=== PATIENT | male | born 1945 | race Caucasian/White ===

== ENCOUNTER 2016-08-13 19:23 | Inpatient (IN) | payer OTHER, MEDICAID ==
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
--- NOTE | 2016-08-13 19:40 | CPEKG ---
Heart Rate: 98 RR Interval: 612 P-R Interval: 216 QRSD Interval: 110 QT Interval: 372 QTC Interval: 476 P [place]: 41 QRS [place]: -13 T Wave [place]: 73 EKG Severity - ABNORMAL ECG - EKG Impression: SINUS RHYTHM EKG Impression: FIRST DEGREE AV BLOCK EKG Impression: NONSPECIFIC INTRAVENTRICULAR CONDUCTION DELAY EKG Impression: PROBABLE LEFT VENTRICULAR HYPERTROPHY EKG Impression: INFERIOR INFARCT, OLD Electronically Signed By: Mahamed Walters 13-Aug-2016 21:18:04
[2016-08-13 19:41] LABS: % IMMATURE GRANULYOCYTES 1.2 % (0.0-1.1); ADD DIFF? NO; ADD MORPH? NO; ADD SCAN? NO; ATYPICAL LYMPHOCYTE FLAG 0 (0-99); FRAGMENT RBC FLAG 0 (0-99); HEMATOCRIT 49.4 % (40.0-51.0); HEMOGLOBIN 16.5 g/dL (13.7-17.5); LEFT SHIFT FLG 10 (0-99); LIPEMIA HEMOLYSIS FLAG 80 (0-99); MEAN CELL HEMOGLOBIN 26.7 pg (27.9-34.1); MEAN CELL HEMOGLOBIN CONCENTR. 33.4 g/dL (32.4-36.7); MEAN CELL VOLUME 79.9 fL (81.5-99.8); MEAN PLATELET VOLUME 9.4 fL (8.7-11.7); PLATELET CLUMPS FLAG 10 (0-99); PLATELET COUNT 265 10^3/uL (150-400); RED BLOOD CELL COUNT 6.18 10^6/uL (4.40-6.38); RED CELL DISTRIBUTION WIDTH 13.4 % (11.5-15.2)
[2016-08-13] MEDS ORDERED: ALTEPLASE 100 MG/100 ML VIAL IV ONE ×2 (19:51→20:17)
[2016-08-13 19:56] LABS: ALANINE AMINOTRANSFERASE 98 IU/L (21-72); ALBUMIN 4.5 g/dL (3.5-5.0); ALKALINE PHOSPHATASE 79 IU/L (38-126); ANION GAP 15 mEq/L (8-16); ASPARTATE AMINOTRANSFERASE 74 IU/L (17-59); BILIRUBIN,TOTAL 0.7 mg/dL (0.1-1.4); BILIRUBIN-CONJUGATED 0.4 mg/dL (0.0-0.5); BILIRUBIN-UNCONJUGATED 0.3 mg/dL (0.0-1.1); CALCIUM 10.1 mg/dL (8.5-10.4); CARBON DIOXIDE 20 mEq/l (22-31); CHLORIDE 100 mEq/L (97-110); GLOMERULAR FILTRATION RATE > 60; GLUCOSE 186 mg/dL (70-100); MAGNESIUM 1.8 mg/dL (1.6-2.3); POTASSIUM 4.9 mEq/L (3.5-5.2); SODIUM 135 mEq/L (134-144); TOTAL PROTEIN 8.3 g/dL (6.3-8.2)
[2016-08-13 20:08] LABS: CREATINE KINASE-MB FRACTION 0.49 ng/mL (0-3.19); TROPONIN I < 0.012 ng/mL (0-0.034)
[2016-08-13] MEDS ORDERED: LABETALOL HCL 5 MG/ML 20 ML MDV ONE (20:11)
[2016-08-13] MEDS ORDERED: NS 50 ML IV ONE (20:17)
[2016-08-13] MEDS ORDERED: ALTEPLASE 1 MG/ML SYR IV ONE (20:17)
[2016-08-13] MEDS ORDERED: LABETALOL HCL 5 MG/ML 20 ML MDV IVP ONE (20:21)
[2016-08-13 20:30] LABS: INR 1.07 (0.83-1.16); PROTIME(PATIENT) 13.8 SEC (12.0-15.0)
[2016-08-13 20:31] LABS: APTT 26.9 SEC (23.0-38.0)
[2016-08-13] MEDS ORDERED: NS 1,000 ML IV ONE (20:35)
--- NOTE | 2016-08-13 20:37 | CT ---
CT Brain Without Contrast 1934 hours History: Stroke alert. Acute neurological changes.. Technique: Axial computed tomographic images of the brain without contrast. Images were reconstruct ed down to 1.25 mm slice thickness. Dose reduction techniques were utilized. Comparison prior CT study of July 29, 2016. Findings: Ventricles, cisterns, and sulci are widened consistent with stable mild to moderate atroph y. No hydrocephalus, masses, midline shift/herniation, or subdural hematomas. No intraparenchymal hem orrhage or mass effect. Stable mild hypodensities are seen in the white matter of bilateral cerebral hemispheres. There is no acute peripheral cerebral infarct seen. Arteriosclerotic calcifications ar e noted associated with distal ICA in the parasellar location bilaterally. Bone windows demonstrate no displaced fractures. Paranasal sinuses and mastoid air cells are clear. erosions are seen associated with the left premola r as well as the loop left first and second molars with erosion around the roots similar to prior fay dy. There is also reactive mucosal thickening inferior left maxillary sinus. The remainder of the par anasal sinuses are clear. There is also erosion around the roots of the right and left second molar i s at the mandible level as well as the premolars bilaterally. Impression: 1. Stable mild to moderate atrophy. 2. No hemorrhage, mass effect, or definite acute peripheral infarct. 3. Stable mild microvascular ischemic disease. 4. Moderate dental disease with associated erosions. These findings were discussed by telephone with Dr. Solomon Macdonald at 1940 hrs.
--- NOTE | 2016-08-13 21:40 | CT ---
CT Angiogram of the Head and Neck 2040 hours History: Stroke alert. Evaluate for stenosis or thrombus the head and neck. Technique: Spiral imaging was obtained from the aortic arch through the skull during the administrati on of 85 mL Isovue-370 IV contrast. The images were reviewed in multiple planes. Volume rendering was performed by me, as well. Dose reduction techniques were utilized. Findings: CT Angiogram Neck: The aortic arch has a normal contour. There is some scattered calcified plaques at the aortic arch level. The great vessels off the aortic arch are normal in appearance. There is a sm all amount of noncalcified plaque in the mid left and right CCA without significant encroachment upon the lumen. There is mild partially calcified plaque within the carotid bulb to proximal ICA bilater ally with mild encroachment upon the lumen but no significant stenosis. Otherwise, the ECA and ICA ar e normal without plaque formation or stenosis. There is a tiny calcified plaque involving the distal left ICA below the skull base without significant stenosis. The vertebral arterial system within the neck is normal in appearance without stenosis, as well. The left vertebral artery is dominant. The or igin of the vertebral artery is also normal bilaterally. There is no evidence of aneurysm or dissect ion. Images through the neck demonstrate no significant lymphadenopathy. A few small subcentimeter lymph n odes are seen. The musculature is symmetric. The submandibular glands and parotid glands are normal i n appearance bilaterally. The patient has had previous anterior cervical fusion from C5 through C7. M oderate degenerative disk disease is noted at C4-C5. CT Angiogram [place]: The distal ICA at the base of the brain has a normal appearance bilate rally without evidence of significant stenosis. There is calcified plaque involving the carotid sipho n bilaterally without significant stenosis. There is normal branching into the anterior and middle ce rebral arteries. The anterior communicating artery is normal in appearance. There is relative decreas e in opacification of anterior temporal branch off the middle cerebral artery on the left when compar ed to the right side. No additional cough of flow or evidence of aneurysm is seen. There is dominant left vertebral artery with relatively small caliber of the right vertebral artery w ith relative areas of narrowing associate with the distal right vertebral artery just before the conf luence into the basilar artery. There are some scattered calcified plaques involving the vertebral ar lee about the level of the foramen magnum bilaterally without significant stenosis. There is normal branching into the posterior inferior cerebellar artery, as well as the superior cerebellar artery an d posterior cerebral artery branches. Imaging through the brain demonstrates no evidence of intracranial hemorrhage, subdural collection, v ascular malformation, or evidence of cerebral infarction. Impression: 1. Scattered calcified plaques associated with the carotid bulb and proximal ICA bilaterally without significant stenosis. Noncalcified plaque is also seen associated with this ECA bilaterally an distal left ICA below the skull base without significant stenosis. 2. Arteriosclerotic plaque at the carotid siphon bilaterally without significant stenosis. 3. Poor filling of the left anterior temporal artery when compared to the right near the proximal M2 segment. This could be related to noncalcified plaque , spasm, or recannulizing thrombus. 4. Mild narrowing associate with the distal right vertebral artery just below the confluence into the basilar artery. This could be congenital versus related to noncalcified plaques. These findings were discussed by telephone with Dr. Solomon Macdonald at 2036 hrs. Note: All calculations were performed using NASCET criteria.
--- NOTE | 2016-08-13 22:47 | DX ---
AP chest x-ray 1943 hours. History: Stroke alert. Acute neurological changes. Findings: Comparison to January 22, 2016. Heart size remains mild to moderately enlarged. Pulmonary vasculature is prominent centrally more pro minent since the prior study. There is once again poor inspiration with mild compressive changes at t he lung bases. Is mild increase in interstitial markings diffusely bilaterally. There is no consolida tion, effusion, or pneumothorax. Osseous structures are unchanged. Impression: 1. Mild to moderate cardiomegaly with mild increase in pulmonary vasculature and prominent interstiti al markings. Rule out mild fluid overload.
[2016-08-13] MEDS ORDERED: LABETALOL HCL 5 MG/ML 20 ML MDV IVP PRN (22:50)
[2016-08-13 23:05] LABS: COLOR YELLOW; LEUKOCYTE ESTERASE,URINE NEGATIVE (NEGATIVE); NITRITE,URINE NEGATIVE (NEGATIVE)
[2016-08-13] MEDS: HYDROCODONE/APAP 5/325 TAB PO PRN (23:59)
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
[2016-08-14 06:14] LABS: % IMMATURE GRANULYOCYTES 1.1 % (0.0-1.1); ABSOLUTE IMMATURE GRANULOCYTES 0.09 10^3/uL (0.00-0.10); ADD DIFF? NO; ADD MORPH? NO; ADD SCAN? NO; ATYPICAL LYMPHOCYTE FLAG 0 (0-99); FRAGMENT RBC FLAG 0 (0-99); HEMATOCRIT 43.4 % (40.0-51.0); HEMOGLOBIN 14.5 g/dL (13.7-17.5); LEFT SHIFT FLG 10 (0-99); LIPEMIA HEMOLYSIS FLAG 80 (0-99); MEAN CELL HEMOGLOBIN 26.5 pg (27.9-34.1); MEAN CELL HEMOGLOBIN CONCENTR. 33.4 g/dL (32.4-36.7); MEAN CELL VOLUME 79.2 fL (81.5-99.8); MEAN PLATELET VOLUME 9.3 fL (8.7-11.7); PLATELET CLUMPS FLAG 10 (0-99); PLATELET COUNT 249 10^3/uL (150-400); RED BLOOD CELL COUNT 5.48 10^6/uL (4.40-6.38); RED CELL DISTRIBUTION WIDTH 13.4 % (11.5-15.2)
[2016-08-14 06:24] LABS: ALANINE AMINOTRANSFERASE 66 IU/L (21-72); ALBUMIN 2.7 g/dL (3.5-5.0); ALKALINE PHOSPHATASE 41 IU/L (38-126); ANION GAP 8 mEq/L (8-16); ASPARTATE AMINOTRANSFERASE 33 IU/L (17-59); BILIRUBIN,TOTAL 0.4 mg/dL (0.1-1.4); CALCIUM 6.8 mg/dL (8.5-10.4); CARBON DIOXIDE 21 mEq/l (22-31); CHLORIDE 111 mEq/L (97-110); CHOLESTEROL 152 mg/dL (140-220); CHOLESTEROL/HDL RATIO 6.91 RATIO (1.00-4.97); CREATININE 0.8 mg/dL (0.7-1.3); GLOMERULAR FILTRATION RATE > 60; GLUCOSE 172 mg/dL (70-100); HIGH DENSITY LIPOPROTEIN 22 mg/dL (40-65); LDL/HDL RATIO 3.59 RATIO (1.00-3.64); LOW DENSITY LIPOPROTEIN 79 mg/dL (80-100); MAGNESIUM 1.4 mg/dL (1.6-2.3); NON-HIGH DENSITY LIPOPROTEIN 130 mg/dL (90-129); POTASSIUM 3.3 mEq/L (3.5-5.2); SODIUM 140 mEq/L (134-144); TOTAL PROTEIN 5.5 g/dL (6.3-8.2); TRIGLYCERIDE 257 mg/dL (40-150); VERY LOW DENSITY LIPOPROTEINS 51 mg/dL (8-25)
[2016-08-14 06:32] LABS: TROPONIN I < 0.012 ng/mL (0-0.034)
[2016-08-14 06:40] LABS: APTT 27.5 SEC (23.0-38.0); INR 1.17 (0.83-1.16); PROTIME(PATIENT) 14.9 SEC (12.0-15.0)
[2016-08-14] MEDS ORDERED: PROTOCOL MAGNESIUM 1 DOSE IV PRN (07:17)
[2016-08-14] MEDS ORDERED: PROTOCOL POTASSIUM 1 DOSE MISC PRN (07:17)
[2016-08-14] MEDS ORDERED: D50W 25 GM/50 ML SYR IVP PRN (07:17)
[2016-08-14] MEDS: INSULIN LISPRO 100 UNIT/ML SC SCH ×3 (09:00→19:07)
[2016-08-14] MEDS ORDERED: POTASSIUM CL 10 MEQ TAB PO ONE (09:35)
[2016-08-14] MEDS ORDERED: MAGNESIUM SULF 2 GM/WATER 50 ML IV ONE (09:35)
--- NOTE | 2016-08-14 10:05 | ECHO ---
[id number] + + [address] : : [place] [address] : : [phone] + + Adult Echocardiographic Report + ----+ :Name: ISABEL NEWSOME Ramonita Date: 08/14/2016 08:00 AM : : Hospital Admission Number: [id number] Location: 251: :: 1945 Gender: Male Height: 63 in : :Age: 71 yrs Race: WH Weight: 220 lb : :Reason For Study: Ischemic stroke : : BSA: 2.0 meters2 : + ----+ MMode/2D Measurements & Calculations IVSd: 1.1 cm LVIDd: 5.7 cm FS: 52.3 % Ao root diam: 4.5 cm LVPWd: 1.4 cm LVIDs: 2.7 cm EDV(Teich): 161.9 ml LA dimension: 4.6 cm ESV(Teich): 27.8 ml EF(Teich): 82.8 % Normal Measurement Values: + + :LVIDd (3.5-5.7cm) IVSd (0.6-1.1cm) LVPWd (0.6-1.1cm) Aortic Root (2.0-3.7cm)Left Atrium (1.5-4.0cm): :LV Vol(d) (76-115ml) LV Vol(s) (29-48ml) Ejec Fraction (50-65%)PV Alexis (0.6- 1.2m/s) TV Alexis (0.4-1.0m/s) : :MV E Alexis (0.8-1.0m/s)MV A Alexis (0.3-1.0m/s)LVOT Alexis (0.7-1.2m/s) Asc Ao Alexis ( 0.9-1.8m/s) : + + Doppler Measurements & Calculations MV E max alexis: 67.6 cm/sec Ao V2 max: 145.2 cm/sec MV A max alexis: 109.6 cm/sec Ao max P.4 mmHg MV E/A: 0.62 Left Ventricle The left ventricle is normal in size. There is normal left ventricular wall thickness. Left ventricular systolic function is normal. Ejection Fraction = 60-65%. There is Doppler evidence for diastolic dysfunction. No regional wall motion abnormalities noted. Right Ventricle The right ventricle is normal in size and function. Atria The left atrial size is normal. Right atrial size is normal. Injection of contrast documented no interatrial shunt. Mitral Valve The mitral valve is normal in structure and function. There is no evidence of mitral valve prolapse. There is no mitral valve stenosis. Tricuspid Valve Normal tricuspid valve. Aortic Valve The aortic valve is trileaflet. The aortic valve opens well. There is mild aortic valve calcification. There is no aortic stenosis. Trace aortic regurgitation. Pulmonic Valve The pulmonic valve is normal in structure and function. Trace pulmonic valvular regurgitation. Great Vessels The aortic root is normal size. Pericardium/Pleural There is no pericardial effusion. There is a fat pad seen. Conclusion A complete two-dimensional transthoracic echocardiogram was performed (2D, M-mode, Doppler and color flow Doppler). The study was technically difficult. Left ventricular systolic function is normal. Injection of contrast documented no interatrial shunt. Ejection Fraction = 60-65%. There is Doppler evidence for diastolic dysfunction. There is mild aortic valve calcification. Trace aortic regurgitation. Trace pulmonic valvular regurgitation. There is a fat pad seen. Final Reading Physician: Lam Starkey signed on 08/14/2016 10:03 AM Ordering Physician: Alisia Soto Performed By: Madalyn Montemayor, [facility]
[2016-08-14] MEDS ORDERED: POTASSIUM CL 20 MEQ TAB PO ONE (10:34)
[2016-08-14] MEDS ORDERED: tiZANidine HCL 2 MG TAB PO PRN (10:35)
[2016-08-14] MEDS ORDERED: HYDROCODONE/APAP 10/325 TAB PO PRN (10:35)
[2016-08-14] MEDS ORDERED: TEMAZEPAM 15 MG CAP PO PRN ×2 (10:35→11:35)
[2016-08-14] MEDS ORDERED: MAGNESIUM HYDROXIDE 30 ML UDCUP PO PRN (10:35)
[2016-08-14] MEDS ORDERED: ZOLPIDEM TARTRATE 5 MG TAB PO PRN (10:35)
[2016-08-14] MEDS: LISINOPRIL 40 MG TAB PO SCH (11:10)
--- NOTE | 2016-08-14 12:47 | GCON ---
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 HISTORY OF PRESENT ILLNESS: Mr. Simms is an extremely pleasant 71-year-old white male with extensiv e past medical history, including chronic pain, depression, hypertension and diabetes. He presents f rom the retirement with aphasia. He was brought to the emergency room per stroke protocol. He was given tPA, and shortly thereafter, improved dramatically and his neurologic status improved to appro ximately baseline. In discussion with the patient, he states overall he is feeling quite well. He i s complaining of slight nausea, but there is no headache, blurred vision, or double vision. No chest pain, pleuritic-type chest pain or angina equivalent. No fever or night sweats. Again, overall, he is feeling fairly close to his normal self. PAST MEDICAL HISTORY: Again significant for hypertension, depression, diabetes, chronic pain. ALLERGIES: Gabapentin. SOCIAL HISTORY: No history of tobacco use. No history of alcohol use. He lives in semi-independent living. PAST SURGICAL HISTORY: He has had a C3-C6 fusion, and appendectomy. CURRENT MEDICATIONS: Amlodipine, aspirin, lisinopril, Lyrica, metformin, milk of magnesia, MiraLAX, [place], nortriptyline, paroxetine, temazepam, Tricor, vitamin D2, clonidine, Januvia, and BuSpar. PHYSICAL EXAM: VITAL SIGNS: Blood pressure is 151/69, pulse is 82, respirations 20, temperature, he is afebrile. Oxygen saturation 94% on room air. GENERAL: He is a well-developed 71-year-old white male who is resting comfortably in no acute distress. HEENT: Eyes are CHU, EOMI. Throat shows no erythema or tonsillar hypertrophy. NECK: Supple. There is no cervical adenopathy. HEART: Regula r rate and rhythm with a 2/6 systolic murmur at left sternal border without radiation. LUNGS: Dimin ished breath sounds, but no wheeze. ABDOMEN: Soft, nontender. Bowel sounds are present in all 4 qu adrants. EXTREMITIES: No clubbing, cyanosis, or edema. LABORATORY: 1. White count 7.9, hemoglobin 14, hematocrit 43, platelet count 249. INR is 1.17. Sodium 140, pot assium 3.3, chloride 111, CO2 of 21, BUN 18, creatinine 0.8, glucose is 172. TSH is 0.621. 2. Urinalysis is negative. 3. Echocardiogram shows an ejection fraction of 60% to 65%, otherwise, mostly normal. 4. CT scan of the head: [id number] atrophy. No hemorrhage, mass effect, or acute infarcts. IMPRESSION: 1. Acute stroke. 2. Status post tPA. 3. Diabetes. Blood sugar under control. 4. Hypertension. 5. Depression. RECOMMENDATIONS: 1. TPA protocol. 2. DVT and PE prophylaxis. 3. Stress ulcer prophylaxis. 4. PT and OT. 5. Speech to see. 6. Early ambulation. /[id number]/MODL
--- NOTE | 2016-08-14 12:50 | HOSPPROG ---
Hospitalist Progress Note Assessment/Plan: Assessment: 71 yo M p/w suspected acute ischemic CVA Plan: # Suspected acute ischemic CVA. Acute, new problem, further w/u indicated. Evidenced by aphasia, paralysis -complete resolution of symptoms status post tPA -echocardiogram without any shunt or significant abnormalities -get brain MRI to determine whether there are any areas of subclinical infarct -discussed with Dr. Wood Perry, recommends continue ICU level monitoring for neuro checks -ensure blood pressure is less than 180, IV labetalol p.r.n. -LDL 80, continue fibrate treatment and will discuss statin -will discuss with Neuro after their consultation, will consider transesophageal echocardiogram given cryptogenic nature -CT angio of the head and neck demonstrates diffuse plaque without any significant stenosis -aspirin when deemed appropriate by neuro -continue to monitor on telemetry for AFib # Chronic HTN. We will initiate patient's home dosage of lisinopril today, hold amlodipine and initiate tomorrow so as not to lower his blood pressure too quickly # DM2. Chronic -dose patient's Januvia, hold metformin given contrast load -insulin sliding scale but hold subcu insulin until deemed appropriate from a tPA standpoint # Chronic pain w/ continuous opiate dependency. Unclear whether patient's pain medications played any role in his presentation -simplify p.r.n. pain regiment with q.4 hours dosing as opposed to variable dosing on his home reconciliation -continue home bowel regimen, high risk of debilitating constipation Diet. Diabetic Prophylaxis. Moderate risk patient, SCDs Code. Full Disposition. Anticipated discharge is 08/15/2016, pending stabilization of the above, patient requires at least 24 hours of post tPA monitoring in the ICU and he will be transitioned to a [facility] surge room tomorrow. Subjective: Reports that he does not have clear memory of yesterday, able to speak and move all extremities today Objective: Vital Signs Temp Pulse Resp BP Pulse Ox 36.4 C 66 20 150/70 H 93 08/14/16 12:00 08/14/16 12:30 08/14/16 12:30 08/14/16 12:30 08/14/16 12:30 Laboratory Results 08/14/16 06:05 08/14/16 05:39 08/13/16 08/14/16 08/15/16 05:59 05:59 05:59 Intake Total 2350 Output Total 750 550 Balance 1600 -550 PT 14.9 SEC (12.0-15.0) 08/14/16 06:05 INR 1.17 (0.83-1.16) H 08/14/16 06:05 - Pending Discharge Pending Discharge Within 24 Hours: Yes Pending Discharge Date: 08/15/16 Pending Discharge Time: 11:00 - Physical Exam Constitutional: no apparent distress, obese, No not in pain, No uncomfortable Cardiovascular: regular rate and rhythym, no murmur, rub, or gallop, No systolic murmur, No irregularly irregular, No tachycardia, No edema Respiratory: no respiratory distress, no rales or rhonchi, clear to auscultation Gastrointestinal: normoactive bowel sounds, soft, non-tender abdomen, no palpable masses, distension (Moderately obese) Neurologic: AAOx3, sensation intact bilaterally, CN II-XII Intact, other (No aphasia), No weakness (Motor strength 5/5 bilateral upper and lower extremities) , No facial droop Psychiatric: interacting appropriately, not anxious, not encephalopathic, thought process linear ICD10 Worksheet Patient Problems: Problems Problem Status Diagnosed Acute CVA (cerebrovascular accident) Acute Aphasia Acute Hypoxia Acute Right sided abdominal pain Acute Chronic pain Acute Continuous opioid dependence Acute Knee pain, acute Acute Status post cervical arthrodesis Chronic
[2016-08-14] MEDS: HYDROCODONE/APAP 5/325 TAB PO PRN ×2 (13:21→21:05)
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
[2016-08-14] MEDS ORDERED: ONDANSETRON 4 MG/2 ML VIAL ONE (20:02)
[2016-08-14] MEDS ORDERED: ONDANSETRON 4 MG/2 ML VIAL IVP PRN (20:03)
[2016-08-14] MEDS ORDERED: NORTRIPTYLINE HCL 25 MG CAP PO SCH (21:00)
[2016-08-14] MEDS: PREGABALIN 75 MG CAP PO SCH (21:04)
[2016-08-14] MEDS: busPIRone 15 MG TAB PO SCH (21:06)
[2016-08-14] MEDS: POLYETHYLENE GLYCOL 3350 17 GM PKT PO SCH (21:06)
--- NOTE | 2016-08-14 21:28 | MR ---
MRI of the Brain (Without Contrast) August 14, 2016 Indication: Stroke alert. Status post TPA for presumed ischemic infarction. Technique: Sagittal and axial T1, axial fast inversion recovery, fast T2-weighted, and diffusion-bj ghted axial images were obtained without contrast. Comparison: MRI of the brain dated May 06, [address] of the head without contrast performed [facility] 2015. Findings: Diffusion-weighted imaging is normal with no evidence of acute ischemia. Mild scattered glass bcortical and periventricular hyperintense white matter disease in the frontal and parietal lobes is similar to April 2015. No intracranial hemorrhage, swelling, or shift has developed. Atrophy and mild enlargement of the midline ventricular system is similar to April 2015. Periventricular hemo siderin deposition in the left parietal lobe, resulting in susceptibility artifact is unchanged. No n ew hemosiderin deposition. The sagittal sinus and carotid and basivertebral arteries have normal black flow-void on T2-weighted imaging. The pituitary gland is normal size. The cervicooccipital junction is normal. Minimal mucosal thickening is present in the left maxillary sinus. The paranasal sinuses are otherwise clear. Impression: 1. No evidence of acute ischemia or intracranial hemorrhage. 2. Mild nonspecific white matter disease in the frontal and parietal lobes and atrophy are unchanged since April 2015.
--- NOTE | 2016-08-15 05:15 | CPEKG ---
Heart Rate: 47 RR Interval: 1277 P-R Interval: 208 QRSD Interval: 114 QT Interval: 496 QTC Interval: 439 P Ballard: 38 QRS Ballard: -28 T Wave Ballard: 123 EKG Severity - ABNORMAL ECG - EKG Impression: SINUS BRADYCARDIA EKG Impression: LVH WITH IVCD AND SECONDARY REPOL ABNRM Electronically Signed By: Fabio Interiano 15-Aug-2016 09:12:46
[2016-08-15 05:20] LABS: ANION GAP 9 mEq/L (8-16); CARBON DIOXIDE 23 mEq/l (22-31); CHLORIDE 104 mEq/L (97-110); GLOMERULAR FILTRATION RATE > 60; GLUCOSE 227 mg/dL (70-100); SODIUM 136 mEq/L (134-144)
[2016-08-15 05:37] LABS: MAGNESIUM 2.2 mg/dL (1.6-2.3)
[2016-08-15] MEDS ORDERED: PARoxetine HCL 20 MG TAB PO SCH (09:00)
[2016-08-15] MEDS ORDERED: FENOFIBRATE 145 MG TAB PO SCH (09:00)
[2016-08-15] MEDS: PREGABALIN 75 MG CAP PO SCH (09:44)
[2016-08-15] MEDS: HYDROCODONE/APAP 5/325 TAB PO PRN (09:45)
[2016-08-15] MEDS: busPIRone 15 MG TAB PO SCH (09:45)
[2016-08-15] MEDS: INSULIN LISPRO 100 UNIT/ML SC SCH ×2 (09:48→13:33)
[2016-08-15] MEDS: POLYETHYLENE GLYCOL 3350 17 GM PKT PO SCH (09:49)
[2016-08-15] MEDS: LISINOPRIL 40 MG TAB PO SCH (09:54)
[2016-08-15 10:03] VITALS: TEMP 99.3
[2016-08-15 11:42] VITALS: O2SAT 90
--- NOTE | 2016-08-15 12:05 | PDCARCONS ---
Cardiology Consult Reason for Consult: Abnormal EKG Chief Complaint: atypical event Requesting Physician: elder barrow History of Present Illness: Woodrow is a 71-year-old diabetic, hypertensive, hyperlipidemic male suffering from significant depression and chronic pain living at [facility]. He was his usual state of health when he was found in bed unresponsive. The next thing he knew he awoke in a scanner. Prior to the event he did not note any chest pain, palpitations. He has no prior history of events. He has no history of syncope or presyncope. He has no family history of sudden or coronary artery disease prematurely. He himself has no history of coronary artery disease, heart failure, valvular heart disease, arrhythmia. Evaluation in the field suggested aphasia with his eyes wide awake. He was unable to move any extremity. He was brought to the emergency department he was treated with tPA after a negative CT scan was performed. He subsequently regained the ability to speak and move. This morning he is feeling well without any complaints. He is limited in his physical activity but with normal activities of daily living he has no angina. Cardiac review of systems is negative for chest pain, shortness of breath, PND , orthopnea, palpitations, syncope, near syncope, edema. History Information - Allergies/Home Medication List Allergies/Adverse Reactions: gabapentin Allergy (Mild, Verified 08/13/16 19:39) Rash Home Medications: amLODIPine BESYLATE [Norvasc 10 mg (*)] 10 mg PO DAILY 05/06/15 [Last Taken 09/28] Aspirin [Aspirin 81mg (*)] 81 mg PO DAILY 06/14/16 [Last Taken 08/13/16] Ergocalciferol [Vitamin D2 (*)] 50,000 unit PO Q30D 06/14/16 [Last Taken ] Fenofibrate [Tricor 145 mg (*)] 145 mg PO DAILY 06/14/16 [Last Taken 08/13/16] HYDROcodone/APAP 10/325 [Winner 10/325 (*)] 1 tab PO Q6 PRN 06/14/16 [Last Taken 08/13/16] Lisinopril [Zestril 40 mg (*)] 40 mg PO DAILY 06/14/16 [Last Taken 08/13/16] Magnesium Hydroxide [Milk of Magnesia] 30 ml PO DAILY PRN 06/14/16 [Last Taken Unknown] Nortriptyline HCl [Pamelor 25 mg (*)] 25 mg PO HS 06/14/16 [Last Taken 08/13/16] PARoxetine HCL [Paxil 20mg (*)] 20 mg PO DAILY 06/14/16 [Last Taken 08/13/16] Polyethylene Glycol 3350 [Miralax 17 gm (*)] 17 gm PO BID 06/14/16 [Last Taken 08/13/16 21:00] Pregabalin [Lyrica 75mg (*)] 225 mg PO BID 06/14/16 [Last Taken 08/13/16 21:00] metFORMIN HCL [Glucophage 500 mg (*)] 1,000 mg PO BIDMEAL 06/14/16 [Last Taken 08/13/16 18:00] tiZANidine HCL [Zanaflex 2MG (*)] 2 mg PO TID PRN 06/14/16 [Last Taken Unknown] busPIRone [Buspar (*)] 15 mg PO BID 07/07/16 [Last Taken 08/13/16 21:00] clonIDINE [Catapres-Tts (*)] 0.2 mg TD MO 07/07/16 [Last Taken 08/13/16] HYDROcodone/APAP 10/325 [Winner 10/325 (*)] 1 tab PO Q2-3PRN PRN 08/14/16 [Last Taken 08/13/16] Temazepam [Restoril 15 MG (*)] 30 mg PO HSPRN PRN 08/14/16 [Last Taken Unknown] Zolpidem Tartrate [Ambien 5MG (*)] 10 mg PO HS PRN 08/14/16 [Last Taken 08/13/16 ] sitaGLIPtin PHOSPHATE [Januvia 25 MG (*)] 50 mg PO DAILY 08/14/16 [Last Taken ] I have personally reviewed and updated: family history, medical history, social history - Past Medical History degenerative disc disease, diabetes type 2, hypertension, hyperlipidemia - Surgical History Reports: no pertinent surgical hx - Family History Negative for: father with history of CAD younger than 55 - Social History Smoking Status: Never smoked Alcohol Use: None Drug Use: None, Marijuana ([employer]. .) Cardiac History - Cardiac History Cardiac Risk Factors: hypertension (>140/90), lipidemia, diabetes mellitus, age > 65, male Physical Exam Temp Pulse Resp BP Pulse Ox 37.4 C 61 16 161/78 H 90 L 08/15/16 08:00 08/15/16 11:00 08/15/16 11:00 08/15/16 11:00 08/15/16 11:00 O2 (L/minute) 3 FIO2 (%) 3 Lab and Imaging 08/14/16 06:05 08/15/16 04:35 WBC 7.93 10^3/uL (3.80-9.50) 08/14/16 06:05 RBC 5.48 10^6/uL (4.40-6.38) 08/14/16 06:05 Hgb 14.5 g/dL (13.7-17.5) 08/14/16 06:05 Hct 43.4 % (40.0-51.0) 08/14/16 06:05 MCV 79.2 fL (81.5-99.8) L 08/14/16 06:05 MCH 26.5 pg (27.9-34.1) L 08/14/16 06:05 MCHC 33.4 g/dL (32.4-36.7) 08/14/16 06:05 RDW 13.4 % (11.5-15.2) 08/14/16 06:05 Plt Count 249 10^3/uL (150-400) 08/14/16 06:05 MPV 9.3 fL (8.7-11.7) 08/14/16 06:05 Neut % (Auto) 57.3 % (39.3-74.2) 08/14/16 06:05 Lymph % (Auto) 26.5 % (15.0-45.0) 08/14/16 06:05 [place] % (Auto) 8.2 % (4.5-13.0) 08/14/16 06:05 Eos % (Auto) 6.1 % (0.6-7.6) 08/14/16 06:05 Baso % (Auto) 0.8 % (0.3-1.7) 08/14/16 06:05 Nucleat RBC Rel Count 0.0 % (0.0-0.2) 08/14/16 06:05 Absolute Neuts (auto) 4.55 10^3/uL (1.70-6.50) 08/14/16 06:05 Absolute Lymphs (auto) 2.10 10^3/uL (1.00-3.00) 08/14/16 06:05 Absolute Monos (auto) 0.65 10^3/uL (0.30-0.80) 08/14/16 06:05 Absolute Eos (auto) 0.48 10^3/uL (0.03-0.40) H 08/14/16 06:05 Absolute Basos (auto) 0.06 10^3/uL (0.02-0.10) 08/14/16 06:05 Absolute Nucleated RBC 0.00 10^3/uL (0-0.01) 08/14/16 06:05 Immature Gran % 1.1 % (0.0-1.1) 08/14/16 06:05 Immature Gran # 0.09 10^3/uL (0.00-0.10) 08/14/16 06:05 PT 14.9 SEC (12.0-15.0) 08/14/16 06:05 INR 1.17 (0.83-1.16) H 08/14/16 06:05 APTT 27.5 SEC (23.0-38.0) 08/14/16 06:05 Sodium 136 mEq/L (134-144) 08/15/16 04:35 Potassium 5.0 mEq/L (3.5-5.2) 08/15/16 04:35 Chloride 104 mEq/L (97-110) 08/15/16 04:35 Carbon Dioxide 23 mEq/l (22-31) 08/15/16 04:35 Anion Gap 9 mEq/L (8-16) 08/15/16 04:35 BUN 19 mg/dL (7-23) 08/15/16 04:35 Creatinine 1.0 mg/dL (0.7-1.3) 08/15/16 04:35 Estimated GFR > 60 08/15/16 04:35 Glucose 227 mg/dL (70-100) H 08/15/16 04:35 POC Glucose 261 mg/dL (70-100) H 08/14/16 20:57 Calcium 9.0 mg/dL (8.5-10.4) D 08/15/16 04:35 Phosphorus 2.6 mg/dL (2.5-4.5) 08/14/16 05:39 Magnesium 2.2 mg/dL (1.6-2.3) 08/15/16 04:35 Total Bilirubin 0.4 mg/dL (0.1-1.4) 08/14/16 05:39 Conjugated Bilirubin 0.4 mg/dL (0.0-0.5) 08/13/16 19:35 Unconjugated Bilirubin 0.3 mg/dL (0.0-1.1) 08/13/16 19:35 AST 33 IU/L (17-59) 08/14/16 05:39 ALT 66 IU/L (21-72) 08/14/16 05:39 Alkaline Phosphatase 41 IU/L (38-126) 08/14/16 05:39 Creatine Kinase 47 IU/L (0-224) 08/13/16 19:35 CK-MB (CK-2) Fraction 0.49 ng/mL (0-3.19) 08/13/16 19:35 Troponin I < 0.012 ng/mL (0-0.034) 08/14/16 05:39 NT-Pro-B Natriuret Pep 127 pg/mL (0-125) H 08/13/16 19:35 Total Protein 5.5 g/dL (6.3-8.2) L D 08/14/16 05:39 Albumin 2.7 g/dL (3.5-5.0) L D 08/14/16 05:39 Triglycerides 257 mg/dL (40-150) H 08/14/16 05:39 Cholesterol 152 mg/dL (140-220) 08/14/16 05:39 Cholesterol Risk Factr 1.6 (0.2-1.0) H 08/14/16 05:39 LDL Cholesterol, Calc 79 mg/dL (80-100) L 08/14/16 05:39 LDL Risk Factor 1.0 (0.2-1.0) 08/14/16 05:39 VLDL Cholesterol 51 mg/dL (8-25) H 08/14/16 05:39 Non-HDL Cholesterol 130 mg/dL (90-129) H 08/14/16 05:39 HDL Cholesterol 22 mg/dL (40-65) L 08/14/16 05:39 LDL/HDL Ratio 3.59 RATIO (1.00-3.64) 08/14/16 05:39 Cholesterol/HDL Ratio 6.91 RATIO (1.00-4.97) H 08/14/16 05:39 Lipase 167.0 IU/L (23-300) 08/13/16 19:35 TSH 0.621 uIU/mL (0.465-4.680) 08/14/16 05:39 Urine Color YELLOW 08/13/16 21:03 Urine Appearance CLEAR 08/13/16 21:03 Urine pH 5.0 (5.0-7.5) 08/13/16 21:03 Ur Specific [place] 1.020 (1.002-1.030) 08/13/16 21:03 Urine Protein 1+ (NEGATIVE) H 08/13/16 21:03 Urine Ketones NEGATIVE (NEGATIVE) 08/13/16 21:03 Urine Blood NEGATIVE (NEGATIVE) 08/13/16 21:03 Urine Nitrate NEGATIVE (NEGATIVE) 08/13/16 21:03 Urine Bilirubin NEGATIVE (NEGATIVE) 08/13/16 21:03 Urine Urobilinogen NEGATIVE EU (0.2-1.0) 08/13/16 21:03 Ur Leukocyte Esterase NEGATIVE (NEGATIVE) 08/13/16 21:03 Urine RBC 1-3 /hpf (0-3) 08/13/16 21:03 Urine WBC 1-3 /hpf (0-3) 08/13/16 21:03 Ur Epithelial Cells TRACE /lpf (NONE-1+) 08/13/16 21:03 Ur Culture Indicated? NOT INDICATED (NI) 08/13/16 21:03 Urine Glucose 3+ (NEGATIVE) H 08/13/16 21:03 Visualized and Interpreted Chest x-ray results: Yes Chest X-ray Interpretation: no infiltrate Visualized and Interpreted EKG results: Yes EKG additional interpertation: EKG 1. Showed sinus tachycardia without acute ST- T changes. EKG 2. Reveals sinus bradycardia with diffuse T-wave inversions consistent with underlying brain injury versus LVH and strain. Telemetry: Bradycardia Echocardiogram: normal left ventricular function without LVH. No significant valvular abnormalities A/P Assessment: 1. ill-defined spell associated with aphasia an inability to move. Status post tPA 2. atherosclerotic vascular disease by imaging. 3. hypertension 4. Diabetes type 2. 5. Hyperlipidemia. 6. abnormal EKG with asymptomatic bradycardia and nonspecific T-wave changes. 7.Microcytosis not associated with anemia. 8. Chronic pain 9. Depression. Assessment: Abnormal EKG is nonspecific. Differential diagnosis would include a atypical brain injury with bradycardia and diffuse T-wave inversions verses changes associated with longstanding hypertension. I do not think this represents unstable coronary syndrome based on negative symptomatology, normal troponins. His echocardiogram shows normal left ventricular function. There is no significant LVH. The possibility that this spell represented an atypical presentation for an arrhythmia should be considered in light of risk. Recommendations: Continue current medical therapy for hypertension, diabetes, hyperlipidemia. These appear to be well controlled. 30 day monitor for arrhythmia. Considerations for standard risk stratification in the future based on high risk , age, male sex, diabetes, hyperlipidemia, hypertension. (last risk stratification 2011 with negative MPI by patient history. ) Review of Systems - Review of Systems Constitutional: denies: chills, fever, malaise, weakness, weight loss EENTM: no symptoms reported Respiratory: no symptoms reported Cardiac: no symptoms reported Gastrointestinal/Abdominal: no symptoms reported Genitourinary: no symptoms Musculoskelatal: other (chronic pain.) Skin: no symptoms Neurological: depressed. denies: headache, numbness, paresthesia Hematologic/Lymphatic: no symptoms reported Immunologic/allergic: no symptoms reported
[2016-08-15 12:55] VITALS: BP 97/57; PULSE 55; RESP 14
--- NOTE | 2016-08-15 13:29 | PDDCSUM ---
Discharge Summary Discharge Summary: DISCHARGE SUMMARY FOLLOW-UP ITEMS: Outpatient 30 day event monitor to be followed by nuclear medicine stress test, performed through [facility] DATE OF ADMISSION: 08/13/2016 DATE OF DISCHARGE: 08/15/2016 DISCHARGE DIAGNOSES: 1. Possible ischemic CVA 2. Chronic hypertension 3. Chronic diabetes mellitus type 2 4. Chronic pain with continuous opiate dependency 5. Sinus bradycardia CONSULTATIONS: Cardiology, Neurology PROCEDURES / IMAGING: MRI demonstrating no evidence of acute infarct, CT angiogram of the head and neck demonstrating diffuse plaques but no flow limiting stenosis, echocardiogram demonstrating diastolic dysfunction but no focal wall motion abnormalities, telemetry demonstrating intermittent sinus bradycardia CHIEF COMPLAINT: Acute aphasia and paralysis SUBJECTIVE: Patient is feeling well at time of discharge, he is able to speak is able to move he has no further complaints PHYSICAL EXAM ON DISCHARGE: Systolic blood pressure is 141 60, heart rate is in the 50 to 70 range, cranial nerves 2-12 are intact, motor strength 5/5 bilateral upper and lower extremities with intact sensation bilaterally, speech is fluent, awake oriented x3 LABS ON DISCHARGE: LDL 79, troponin levels negative, creatinine within normal limits HOSPITAL COURSE BY PROBLEM: 1. Possible ischemic CVA. Patient's presenting symptoms a facial and paralysis were clinically consistent with CVA and he was administered tPA after a stroke alert was called in the emergency department. He received ICU level care post tPA and did not demonstrate any evidence of hemorrhagic conversion. His brain MRI did not demonstrate evidence of definitive CVA, but his EKG T-wave inversions did appear to be consistent with those frequently seen in brain injury. Demonstrated no evidence of arrhythmia on telemetry, and Cardiology consults will arrange for 30 day event monitor as an outpatient. Our Neurology decorator consultant recommended Re initiating the patient's home dosage of aspirin 81 mg , continuing his antihypertensives, considering up titration of his for fibrate or addition of statin for further CVA prevention. The patient has been intolerant of statins in the past, and he will continue this conversation with Neurology as an outpatient. The patient will follow up with our Neurology decorator consultant within the next 6 weeks. It is the opinion of our neurologist that the patient's presentation may be more likely represent an acute confusional state secondary to opiate over medication rather than a true CVA given lack of definitive evidence on MRI. 2. Chronic hypertension. Patient's home antihypertensives were initiated in stages given that he was initially felt to be post CVA and required some degree of permissive hypertension. His current systolic blood pressure is within a reasonable range for discharge. 3. Chronic diabetes mellitus type 2. Patient's metformin was held during his hospitalization given his contrast load, it can be re-initiated with his Januvia. 4. Chronic pain with continuous opiate dependency. As mentioned above, it was unclear whether patient's pain medications placing a role in his presentation and the development of an acute confusional state. Given the patient's [place] is being dosed more frequently than is appropriate as an outpatient, have adjusted his dosing to q.4 hours p.r.n. and I have educated the patient that he should not be dosing it more frequently than this given risk of systemic accumulation and resultant neurologic suppressive symptoms. Patient is also continuing on his regular home bowel regimen and is not constipated. 5. Sinus bradycardia. Patient evidence of a sinus bradycardia on telemetry monitoring without any arrhythmias. It is possible that his bradycardia may be secondary to recent neurologic event or it may be his resting sinus mechanism. That being said echocardiogram did not demonstrate any focal wall motion abnormalities, troponin levels were consistently negative, he did not experience any symptomatic chest pain, he was seen by radiological metallurgist recommended a 30 day event monitor following discharge as well as outpatient CAD risk stratification with a nuclear medicine Lexiscan stress test following his event monitor completion. The patient is currently not symptomatic from his bradycardia and is not hypotensive. He is safe for discharge home. DISCHARGE MEDICATIONS: Please see official discharge medication reconciliation sheet in chart , frequency adjustment to [place] from acute 2-3 hours to q.4 hours p.r.n. pain. DISCHARGE INSTRUCTIONS: Please follow-up with [facility] to have a 30 day event monitor placed and then undergo nuclear medicine Lexiscan stress testing once that is completed, follow up with Neurology within 6 weeks. TIME SPENT: Greater than 30 minutes were spent on direct patient care, as well as discharge planning and preparation.
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
== END 2016-08-15 18:00 | DRG 92 ==
LOC: EDUNIT# → F2N 21:47
PROVIDERS: ADMIT Internal Medicine; ATTEND Internal Medicine
DX: R47.01 Aphasia (principal); F11.20 Opioid dependence, uncomplicated; E66.2 Morbid (severe) obesity with alveolar hypoventilation; I10 Essential (primary) hypertension; E11.9 Type 2 diabetes mellitus without complications; G89.29 Other chronic pain; F43.10 Post-traumatic stress disorder, unspecified; Z68.39 Body mass index [BMI] 39.0-39.9, adult
CPT/HCPCS: 92523-GN; 92610-GN; 96374; 97161-GP; 97165-GO; G8978-GP-CH; G8979-GP-CH; G8980-GP-CH; G8987-GO-CI; G8988-GO-CI; G8989-GO-CI; G8996-GN-CH; G8997-GN-CH; G8998-GN-CH; G9162-GN-CH; G9163-GN-CH; G9164-GN-CH; J1815; J2405; J2997; J3490

== ENCOUNTER 2016-08-18 12:37 | Emergency (ER) | payer OTHER, MEDICAID ==
[2016-08-18 12:47] VITALS: TEMP 97.9
[2016-08-18] MEDS ORDERED: LISINOPRIL 20 MG TAB PO ONE (13:11)
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
[2016-08-18] MEDS ORDERED: LISINOPRIL 20 MG TAB ONE (13:19)
[2016-08-18 16:06] VITALS: BP 168/84; PULSE 90; RESP 18; O2SAT 94
== END 2016-08-18 16:01 | disposition home or self-care (01) ==
LOC: EDUNIT#
DX: I10 Essential (primary) hypertension (principal); E11.9 Type 2 diabetes mellitus without complications; Z79.82 Long term (current) use of aspirin

== ENCOUNTER 2016-08-23 12:37 | Emergency (ER) | payer OTHER, MEDICAID ==
[2016-08-23] MEDS ORDERED: LORazepam 2 MG/ML INJ IVP ONE (13:50)
[2016-08-23] MEDS ORDERED: LORazepam 2 MG/ML INJ ONE (14:01)
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
--- NOTE | 2016-08-23 15:25 | MR ---
MRI of the Brain (Without Contrast) August 23, 2016 Clinical Indication: Left facial droop, evaluate for CVA. Technique: T1-weighted images were acquired axially and sagittally from the foramen magnum to the jodie jose. Axial FLAIR, fast T2-weighted, and diffusion-weighted axial images were obtained without contra st. Comparison Exam: August 14, 2016. Findings: Underlying cerebral and cerebellar atrophy and moderate white matter microvascular ischemic gliosis appears similar to previous examination. No areas of diffusion restriction identified to sug gest acute cortical ischemia. No evidence of mass or mass effect or intracranial hemorrhage. Cranioce rvical junction and skull base appear intact. Carotid and vertebrobasilar flow-voids are present. Minimal mucoperiosteal thickening in the inferior left maxillary sinus is stable. Impression: Stable MRI examination of the brain. Results called to Dr. Grimm at 2:57 p.m.
[2016-08-23 16:08] LABS: % IMMATURE GRANULYOCYTES 0.8 % (0.0-1.1); ABSOLUTE IMMATURE GRANULOCYTES 0.06 10^3/uL (0.00-0.10); ADD DIFF? NO; ADD MORPH? NO; ADD SCAN? NO; ATYPICAL LYMPHOCYTE FLAG 0 (0-99); FRAGMENT RBC FLAG 0 (0-99); HEMATOCRIT 44.6 % (40.0-51.0); HEMOGLOBIN 14.8 g/dL (13.7-17.5); LEFT SHIFT FLG 0 (0-99); LIPEMIA HEMOLYSIS FLAG 80 (0-99); MEAN CELL HEMOGLOBIN 26.6 pg (27.9-34.1); MEAN CELL HEMOGLOBIN CONCENTR. 33.2 g/dL (32.4-36.7); MEAN CELL VOLUME 80.1 fL (81.5-99.8); MEAN PLATELET VOLUME 9.9 fL (8.7-11.7); PLATELET CLUMPS FLAG 0 (0-99); PLATELET COUNT 261 10^3/uL (150-400); RED BLOOD CELL COUNT 5.57 10^6/uL (4.40-6.38); RED CELL DISTRIBUTION WIDTH 13.6 % (11.5-15.2)
[2016-08-23 16:11] LABS: ANION GAP 14 mEq/L (8-16); CALCIUM 9.3 mg/dL (8.5-10.4); CARBON DIOXIDE 21 mEq/l (22-31); CHLORIDE 102 mEq/L (97-110); CREATININE 1.2 mg/dL (0.7-1.3); GLOMERULAR FILTRATION RATE 60; GLUCOSE 320 mg/dL (70-100); POTASSIUM 4.5 mEq/L (3.5-5.2); SODIUM 137 mEq/L (134-144)
[2016-08-23 16:23] LABS: TROPONIN I < 0.012 ng/mL (0-0.034)
[2016-08-23 16:38] VITALS: BP 175/99; PULSE 88; RESP 16; TEMP 97.7; O2SAT 91
== END 2016-08-23 16:38 | disposition home or self-care (01) ==
DX: R29.810 Facial weakness (principal); I10 Essential (primary) hypertension; E11.9 Type 2 diabetes mellitus without complications; Z86.73 Personal history of transient ischemic attack (TIA), and cerebral infarction without residual deficits; Z79.82 Long term (current) use of aspirin
CPT/HCPCS: 96374

== ENCOUNTER 2016-08-27 18:34 | Emergency (ER) | payer OTHER, MEDICAID ==
[2016-08-27 18:47] VITALS: RESP 16
--- NOTE | 2016-08-27 19:34 | EDPHY ---
H & P Smoking Status: Never smoked Time Seen by Provider: 08/27/16 18:45 HPI/ROS: HPI Depression. 71-year-old male by ambulance from the [facility]. This patient presents to the emergency department with complaint of depression which he has had since he was discharged from the hospital on August 15. He was admitted on August 13 with a possible acute ischemic stroke. He had a negative diffusion-weighted MRI of his brain. He states that he has been feeling depressed since he was discharged and his depression has been worsening. He denies being suicidal. ROS: Constitutional: No fever, no chills. No weakness. Eyes: No discharge. No changes in vision. ENT: No sore throat. No nasal congestion or rhinorrhea. Respiratory: No cough. No shortness of breath. Cardiac: No chest pain, no palpitations. Gastrointestinal: No abdominal pain, no vomiting, no diarrhea. Genitourinary: No hematuria. No dysuria or increased frequency with urination. Musculoskeletal: No back pain. No neck pain. No myalgias or arthralgias. Skin: No rashes. Neurological: No headache. No focal weakness or altered sensation. Past medical history: As above, hypertension, sinus bradycardia, type 2 diabetes, chronic pain and chronic opiate pain medication dependence. Social history: Nonsmoker. Denies alcohol. Here by himself. Physical Exam: General Appearance: Alert, flat affect. Obese habitus. This patient is responding to questions appropriately and in full sentences. This patient appears well-hydrated and well-nourished. Eyes: Pupils equal and round no pallor or injection. No lid edema, erythema or injection. Neurological: Motor sensory function is grossly intact. Cranial nerves are normal. Gait is normal. Skin: Warm and dry, no rashes. Musculoskeletal: Neck is supple and nontender. Extremities are symmetrical. All joints range without pain or impingement. Psychiatric: No agitation. No depression. Database: EKG: Imaging: Procedures: Emergency department course: After my evaluation he was medically cleared for behavioral health evaluation at 7:30 p.m.. Behavioral Health is where he is here. 9:00 p.m., the patient has been seen and evaluated by [facility]. We are awaiting their disposition. The [facility] french binding folder thinks the patient will be discharged home but wants to talk to the on-call psychiatrist. The patient is depressed but not suicidal. Care transferred to Dr. Naz Corrales at this time. Expected disposition is discharge to home. Differential Diagnosis: The differential diagnosis on this patient includes but is not limited to situational depression, major depression. Suicidal ideation unlikely. This represents a partial list of diagnoses considered. These considerations are based on history, physical exam, past history, reassessment and diagnostic testing. (Kimo Angel) Constitutional: Initial Vital Signs Temperature (C) 36.3 C 08/27/16 18:34 Heart Rate 58 L 08/27/16 18:34 Respiratory Rate 16 08/27/16 18:34 Blood Pressure 203/84 H 08/27/16 18:34 O2 Sat (%) 92 08/27/16 18:34 O2 Delivery Mode Room Air Allergies/Adverse Reactions: gabapentin Allergy (Mild, Verified 08/13/16 19:39) Rash Home Medications: Medication Instructions Recorded amLODIPine BESYLATE [Norvasc 10 mg 10 mg PO DAILY 05/06/15 (*)] Aspirin [Aspirin 81mg (*)] 81 mg PO DAILY 06/14/16 Ergocalciferol [Vitamin D2 (*)] 50,000 unit PO Q30D 06/14/16 Fenofibrate [Tricor 145 mg (*)] 145 mg PO DAILY 06/14/16 Lisinopril [Zestril 40 mg (*)] 40 mg PO DAILY 06/14/16 Magnesium Hydroxide [Milk of 30 ml PO DAILY PRN 06/14/16 Magnesia] Nortriptyline HCl [Pamelor 25 mg 25 mg PO HS 06/14/16 (*)] PARoxetine HCL [Paxil 20mg (*)] 20 mg PO DAILY 06/14/16 Polyethylene Glycol 3350 [Miralax 17 gm PO BID 06/14/16 17 gm (*)] Pregabalin [Lyrica 75mg (*)] 225 mg PO BID 06/14/16 metFORMIN HCL [Glucophage 500 mg 1,000 mg PO BIDMEAL 06/14/16 (*)] tiZANidine HCL [Zanaflex 2MG (*)] 2 mg PO TID PRN 06/14/16 busPIRone [Buspar (*)] 15 mg PO BID 07/07/16 clonIDINE [Catapres-Tts (*)] 0.2 mg TD MO 07/07/16 Temazepam [Restoril 15 MG (*)] 30 mg PO HSPRN PRN 08/14/16 Zolpidem Tartrate [Ambien 5MG (*)] 10 mg PO HS PRN 08/14/16 HYDROcodone/APAP 10/325 [Leonard 0.5 - 2 tab PO Q4 PRN #0 tab 08/15/16 10/325 (*)] HYDROcodone/APAP 10/325 [Leonard 1 tab PO TID@07,13,19 08/28/16 10/325 (*)] Metoprolol Tartrate [Lopressor 50 50 mg PO BID 08/28/16 mg (*)] Polyethylene Glycol 3350 [Miralax 17 gm PO DAILY PRN 08/28/16 17 gm (*)] SITAGLIPTIN PHOSPHATE [Januvia 50 50 mg PO DAILY 08/28/16 mg] Medical Decision Making ED Course/Re-evaluation: 0519: Re-evaluation at this time is patient is resting comfortably sleeping. His blood pressure did improve over the evening. He does have a clonidine patch. He does have a.m. BP medications scheduled. He is also was given his nighttime medications for sleep and pain control. He remains on M1 hold for depression. Pending placement. (Solomon Macdonald) Other Provider: I assumed care of this patient from Dr. Angel at 9:00 p.m.. A mental health evaluation was completed and he is felt to be appropriate for psychiatric hospitalization. Placement is being sought in a geriatric psychiatric facility, likely in [place]. The patient himself is very unhappy about this turn of events. He has been placed on a 72 hour hold. He tells me that he will not cooperate with psychiatric care that is provided to him in [place]. He would prefer placement in [place]. He has agreed to take all of his prescribed medications here. His evening medications include metoprolol. He has been hypertensive here and he will receive his antihypertensive medications along with his pain medications and sleeping medication. He is concerned that he might lose his apartment at [facility]. I am requesting case management involvement in the morning. His care is being transferred to Dr. Macdonald at 00:30 a.m. (Naz Corrales) Patient's care transferred to [place] 7:00 a.m. August 28. On my evaluation the patient is sleeping. He is normotensive. He has been evaluated and medically cleared. We are currently awaiting psychiatric placement. 10:45 a.m. the patient has been accepted at [place] by Dr. Jay. We have completed transfer paperwork. (Giovanny Negron) - Data Points Laboratory Results: Laboratory Results 08/27/16 19:37 08/27/16 19:37 Medications Given: Discontinued Medications Acetaminophen/Hydrocodone Bitart (Leonard 5/325) 1 tab PO EDNOW ONE Stop: 08/28/16 01:58 Last Admin: 08/28/16 01:58 Dose: 1 tab Acetaminophen/Hydrocodone Bitart (Leonard 5/325) 1 tab PO EDNOW ONE Stop: 08/28/16 08:31 Last Admin: 08/28/16 09:00 Dose: 1 tab Clonidine (Catapres) 0.2 mg PO EDNOW ONE Stop: 08/28/16 04:35 Last Admin: 08/28/16 06:49 Dose: Not Given Metoprolol Succinate (Toprol Xl) 50 mg PO EDNOW ONE Stop: 08/28/16 00:21 Last Admin: 08/28/16 01:11 Dose: 50 mg Temazepam (Restoril) 15 mg PO HS PRN PRN Reason: Sleep/Insomnia Stop: 02/24/17 01:36 Last Admin: 08/28/16 01:58 Dose: 15 mg Zolpidem Tartrate (Ambien) 10 mg PO HS PRN PRN Reason: Sleep/Insomnia Stop: 02/24/17 01:36 Last Admin: 08/28/16 01:58 Dose: 10 mg Departure - Departure Disposition: Other Psych, Not [facility] Clinical Impression: Depression Qualifiers: Depression Type: major depressive disorder Major depression recurrence: single episode Active/Remission status: currently active Major depression episode severity: mild Qualifier Code: (F32.0) Major depressive disorder, single episode , mild Condition: Good Instructions: Depression (ED) Additional Instructions: Read and follow provided instructions. Follow-up as instructed by Behavioral Health. Continue your medications as prescribed. Return to the emergency department for worsening depression, suicidal ideations or other serious concerns. Referrals: [place],. [Primary Care Provider] - As per Instructions
[2016-08-27 19:58] LABS: ABSOLUTE IMMATURE GRANULOCYTES 0.08 10^3/uL (0.00-0.10); ADD DIFF? NO; ADD MORPH? NO; ADD SCAN? NO; ATYPICAL LYMPHOCYTE FLAG 10 (0-99); FRAGMENT RBC FLAG 0 (0-99); HEMATOCRIT 48.3 % (40.0-51.0); HEMOGLOBIN 15.8 g/dL (13.7-17.5); LEFT SHIFT FLG 10 (0-99); LIPEMIA HEMOLYSIS FLAG 80 (0-99); MEAN CELL HEMOGLOBIN 26.2 pg (27.9-34.1); MEAN CELL HEMOGLOBIN CONCENTR. 32.7 g/dL (32.4-36.7); MEAN PLATELET VOLUME 9.6 fL (8.7-11.7); PLATELET CLUMPS FLAG 0 (0-99); PLATELET COUNT 288 10^3/uL (150-400); RED BLOOD CELL COUNT 6.04 10^6/uL (4.40-6.38); RED CELL DISTRIBUTION WIDTH 13.4 % (11.5-15.2)
[2016-08-27 20:02] LABS: ANION GAP 12 mEq/L (8-16); CALCIUM 9.6 mg/dL (8.5-10.4); CARBON DIOXIDE 26 mEq/l (22-31); CHLORIDE 99 mEq/L (97-110); CREATININE 1.1 mg/dL (0.7-1.3); ETHANOL SERUM < 10 mg/dL (0-10); GLOMERULAR FILTRATION RATE > 60; GLUCOSE 192 mg/dL (70-100); POTASSIUM 4.5 mEq/L (3.5-5.2); SODIUM 137 mEq/L (134-144)
[2016-08-28] MEDS ORDERED: METOPROLOL SUCCINATE XR 25 MG TAB PO ONE (00:20)
[2016-08-28] MEDS ORDERED: METOPROLOL TARTRATE 50 MG TAB ONE (01:00)
[2016-08-28] MEDS ORDERED: TEMAZEPAM 15 MG CAP PO PRN (01:37)
[2016-08-28] MEDS ORDERED: ZOLPIDEM TARTRATE 5 MG TAB PO PRN (01:37)
[2016-08-28] MEDS ORDERED: HYDROCODONE/APAP 5/325 TAB ONE (01:53)
[2016-08-28] MEDS ORDERED: HYDROCODONE/APAP 5/325 TAB PO ONE ×2 (01:57→08:30)
[2016-08-28 09:52] VITALS: TEMP 97.7
--- NOTE | 2016-08-28 09:59 | CPEKG ---
Heart Rate: 70 RR Interval: 857 P-R Interval: 216 QRSD Interval: 102 QT Interval: 416 QTC Interval: 449 P Dover: 32 QRS Dover: -24 T Wave Dover: 103 EKG Severity - ABNORMAL ECG - EKG Impression: SINUS RHYTHM EKG Impression: PROBABLE LVH WITH SECONDARY REPOL ABNRM EKG Impression: PROBABLE INFERIOR INFARCT, OLD EKG Impression: no acute changes Electronically Signed By: Giovanny Negron 28-Aug-2016 10:15:22
[2016-08-28 12:27] VITALS: BP 161/83; PULSE 71; O2SAT 94
== END 2016-08-28 12:24 ==
LOC: EDUNIT#
DX: F32.0 Major depressive disorder, single episode, mild (principal); I10 Essential (primary) hypertension; E11.9 Type 2 diabetes mellitus without complications; Z79.82 Long term (current) use of aspirin
CPT/HCPCS: 80305; G0480